=== PATIENT | female | born 1980 | race Caucasian/White ===

== ENCOUNTER 2020-02-26 13:20 | Emergency (ER) | payer SELFPAY ==
[~2020-02-26] VITALS: Ht 160 cm; Wt 80.7 kg
[2020-02-26 13:33] VITALS: BP 115/82; Ht 160 cm; Wt 80.7 kg
== END 2020-02-26 14:47 | disposition left against medical advice (07) ==
LOC: ED 13:20
DX: Z53.21 Procedure and treatment not carried out due to patient leaving prior to being seen by health care provider (principal)